=== PATIENT | female | born 1955 | race Caucasian/White ===

== ENCOUNTER 2024-08-25 09:21 | Emergency (ER) | payer MEDICARE, OTHER, SELFPAY ==
[2024-08-25 09:24] VITALS: BP 143/84
--- NOTE | 2024-08-25 09:58 | ED.GENMED ---
History of Present Illness
General
Chief Complaint: Abdominal Symptoms
Time Seen by Provider: 08/25/24 09:37
History of Present Illness
History of Present Illness:
68-year-old female presents the emergency department for evaluation of diarrhea that led to a syncopal event this morning. She notes that she is currently on a GLP-1 medication increased her dosage yesterday, shortly thereafter developed nausea
vomiting and diarrhea. She has no abdominal pain currently. Shortly after having a bout of diarrhea she had a syncopal event on the toilet causing her to fall and strike her head. There is a laceration of the left vision changes, dizziness,
lightheadedness, or severe headache at this time. Has chronic neck pain due to degenerative disc disease with resultant cervical fusion but denies any new neck pain, no new upper or lower extremity paresthesias. She is not on any anticoagulants or
antiplatelets.
Review of Systems
Review of Systems
Allergies reviewed?: Yes
All Other Systems: ROS reviewed and negative except as documented in HPI and ROS
Phy Exam
Physical Exam
Physical Exam:
GEN: Well appearing, NAD, WDWN
HEENT: Oral mucosa moist, no scleral icterus, no nasal congestion. 1.5 cm curvilinear laceration vertically oriented superior to the left orbit with mild ecchymosis, no significant periorbital hematoma. No midline cervical spine tenderness
Cardiac: Regular rate and rhythm, no murmurs
Lung: No respiratory distress, no tachypnea
Abdomen: Soft, grossly nontender
MSK: No gross deformity or injuries
Skin: Good color, no pallor or jaundice, no rashes
Neuro: AO x3; CN II-XII grossly intact. BUE strength 5/5 in all [place], sensation intact and symmetric. BLE strength 5/5 in all [place], sensation intact and symmetric
Psych: Calm, cooperative
Course
Orders/Labs/Results
Orders:
Orders
08/25/24 10:00
Electrocardiogram (*1) Urgent
Reason for Study: Syncope
EKG- Treatment ONCE
0.9% Sodium Chloride 1000 ml [Nss] 1,000 ml IV BOLUS
Lidocaine/Epinephrine/Tetracai [Let Topical Anesthetic Gel] 3 ml TOPICAL NOW STA
Tetanus/Diphth/Acelpertussis [Adacel] 0.5 ml IM .ONCE ONE
08/25/24 10:01
CT Head W/o Iv Contrast Urgent
Comment:
Reason For Exam: syncope/head injury
08/25/24 10:48
Complete Blood Count/No Diff Urgent
Comprehensive Metabolic Panel Urgent
Lipase Urgent
Abnormal Lab Results
08/25/24
10:48
Chloride 109 H mmol/L
(98-107)
BUN 18 H mg/dl
(7-17)
Glucose 113 H mg/dl
(70-99)
Calcium 10.3 H mg/dl
(8.4-10.2)
08/25/24 10:48
08/25/24 10:48
Vital Signs
Initial and Last Documented VS:
Initial Vital Signs
Temp Pulse Resp BP Pulse Ox
97.5 F 79 20 143/84 99
08/25/24 09:24 08/25/24 09:24 08/25/24 09:24 08/25/24 09:24 08/25/24 09:24
Last Documented Vital Signs
Temp Pulse Resp BP Pulse Ox
97.5 F 79 20 143/84 99
08/25/24 09:24 08/25/24 09:24 08/25/24 09:24 08/25/24 09:24 08/25/24 09:24
MDM/Problems Addressed
MDM/Problems Addressed:
Syncopal event was most likely vasovagal due to vomiting and diarrhea which is most likely due to uptitration of GLP-1. I have advised her to reduce her dosage of her GLP-1 to the prior dosage. She did have a laceration to the left eyebrow that
was repaired with glue. CT of the head showed no acute traumatic findings. Labs were reassuring, given IV fluids in the ED and tolerating p.o. fluids without difficulty
*Pulse Oximetry
Patient hypoxic: no
Comment: 99%
*Critical Care Note
Total Time (30-74mins, 75-104mins- exclusive of procedures): Not Applicable
ED Attending Note
-
Portions of this chart may have been created with voice recognition software.� Occasional wrong word or��sound alike� substitutions may have occurred due to the inherent limitations of voice recognition software.
Discharge Plan
Departure
Patient Disposition: Home (Routine Discharge)
Date of Disposition: 08/25/24
Time of Disposition: 12:04
Patient with high blood pressure during this ER visit?: No
Discharge Problem:
Diarrhea, Medication side effect, Syncope, vasovagal, Laceration of eyebrow
Instructions: Syncope (fainting), Laceration Repair With Glue ED
Referrals:
Clara Hidalgo MD [Family Provider, Family Practice]
Activity Restrictions/Additional Instructions:
The glue will dissolve in 5-7 days
Please reduce your next dose of your GLP-1 to avoid further side effects
Interventions
Interventions:
*Risk Screen - Suicide Last Done: 08/25/24 09:24
*General Assessment Last Done: 08/25/24 09:24
Discharge Date and Time
Print Language: SURINAMESE
[2024-08-25] MEDS: LET TOPICAL ANESTHETIC GEL 3 ML TOPICAL (10:55)
[2024-08-25] MEDS: NSS 1000 IV (10:57)
[2024-08-25 11:08] LABS: Hematocrit 40.6 % (37.0-47.0); Hemoglobin 13.9 g/dL (12.0-16.0); Mean Corp Hgb Conc. 34.2 g/dL (33.0-37.0); Mean Corpuscular Hgb 28.1 pg (27.0-31.0); Mean Corpuscular Volume 82.2 fL (81.0-99.0); Mean Platelet Volume 9.4 fL (7.4-10.4); Platelet Count 300 10^3/uL (130-400); Red Blood Cell Count 4.94 10^6/uL (4.20-5.40); Red Cell Dist. Width 13.9 % (11.5-14.5); White Blood Cell Count 9.4 10^3/uL (4.8-10.8)
[2024-08-25 11:24] LABS: Albumin 4.4 g/dl (3.5-5.0); Blood Urea Nitrogen 18 mg/dl (7-17); Carbon Dioxide 26 mmol/L (22-30); Glucose 113 mg/dl (70-99); Total Bilirubin 0.7 mg/dl (0.2-1.3); Total Protein 6.9 g/dl (6.3-8.2); eGFR > 60.00
[2024-08-25 11:33] LABS: ALT (SGPT) 19 U/L (0-35); AST (SGOT) 22 U/L (14-36); Alkaline Phosphatase 62 U/L (38-126); Calcium 10.3 mg/dl (8.4-10.2); Chloride 109 mmol/L (98-107); Lipase 88 U/L (23-300); Potassium 3.9 mmol/L (3.5-5.1); Sodium 143 mmol/L (135-145)
[2024-08-25] MEDS: ADACEL 0.5 ML IM (12:16)
== END 2024-08-25 13:00 | disposition home or self-care (01) ==
LOC: EMR 09:21
PROVIDERS: Physician Assistant; EMERGENCY PHYSICIAN Emergency Medicine; FAMILY PHYSICIAN Family Medicine
DX: R55 Syncope and collapse (principal); R19.7 Diarrhea, unspecified; S01.112A Laceration without foreign body of left eyelid and periocular area, initial encounter; W19.XXXA Unspecified fall, initial encounter; Z23 Encounter for immunization; G89.29 Other chronic pain; Z98.1 Arthrodesis status; Z79.899 Other long term (current) drug therapy
CPT/HCPCS: 12011; 90471; 96360; 99284; 70450; 80053; 83690; 85027; 90715; 93005